=== PATIENT | female | born 1990 | race Caucasian/White ===

== ENCOUNTER 2019-08-30 08:57 | Emergency (ER) | payer SELFPAY ==
[~2019-08-30] VITALS: Ht 162.6 cm; Wt 85.0 kg
--- NOTE | 2019-08-30 09:00 | NUR ---
Patient evaluated by the triage nurse while in the overflow tent.
[2019-08-30 09:04] VITALS: BP 140/80
--- NOTE | 2019-08-30 09:06 | NUR ---
29 Y/O FEMALE SENT FROM [facility] TO GET COVID-19 TESTED. PT STATES SHE HAS HAD BODY ACHES, SORE THROAT, DIZZINESS, NAUSEA, AND FATIGUE X 1 WK. RR EVEN AND UNLABORED, DENIES SOB. DENIES VOMITING/DIARRHEA. VSS
--- NOTE | 2019-08-30 09:06 | NUR ---
Covid precautions taken. Pt stable, vss. placed on tent. no sob, no distress, pt eupnic. Pt with mask.
--- NOTE | 2019-08-30 09:09 | NUR ---
Dr. Gardner is evaluating the patient in the tent.
[2019-08-30 09:27] VITALS: BP 140/80
--- NOTE | 2019-08-30 09:27 | NUR ---
Patient discharged with v/s stable. Written and verbal after care instructions given and explained. Patient verbalized understanding. Ambulatory with steady gait. All questions addressed prior to discharge. Advised to follow up with PMD.
== END 2019-08-30 09:27 | disposition home or self-care (01) ==
LOC: MED 08:57
DX: M79.10 Myalgia, unspecified site (principal); E03.9 Hypothyroidism, unspecified; J02.9 Acute pharyngitis, unspecified; R53.83 Other fatigue; Z90.49 Acquired absence of other specified parts of digestive tract; Z20.828 Contact with and (suspected) exposure to other viral communicable diseases
CPT/HCPCS: 81025; 99283; C9803; U0003; 36415